=== PATIENT | female | born 1985 | race African-American/Black ===

== ENCOUNTER 2016-12-01 14:40 | Emergency (ER) | payer SELFPAY ==
[2016-12-01 15:07] VITALS: BP 128/66; PULSE 78; TEMP 98.4; BMI 30.7
[2016-12-01] MEDS ORDERED: ACETAMINOPHEN 325 MG TABLET (FP) PO ONE (18:07)
--- NOTE | 2016-12-01 18:07 | PDOC ---
History of Present Illness - General Chief Complaint: Nausea/Vomiting Stated Complaint: preg ABD PAIN/Nausea/Vomiting Time Seen by Provider: 12/01/16 17:36 History Source: Patient - History of Present Illness Timing/Duration: reports: constant Quality: reports: cramping Past History - Past Medical History Allergies/Adverse Reactions: Allergies Allergy/AdvReac Type Severity Reaction Status Date / Time No Known Allergies Allergy Verified 12/01/16 15:04 Home Medications: Ambulatory Orders Vit/Iron Fumarate/FA [ Tablet] 1 each PO DAILY 12/01/16 - Psycho/Social/Smoking Cessation Hx Suicidal Ideation: No Smoking History: Never smoked Review of Systems - Review of Systems Constitutional: No: Chills, Fever ABD/GI: Yes: Abdominal cramping. No: Nausea, Vomiting : No: Dysuria *Physical Exam - Vital Signs Last Vital Signs Temp Pulse Resp BP Pulse Ox 98.4 F 78 18 128/66 100 12/01/16 15:05 12/01/16 15:05 12/01/16 15:05 12/01/16 15:05 12/01/16 15:05 - Physical Exam General Appearance: Yes: Appropriately Dressed. No: Apparent Distress HEENT: positive: Normal Voice Neck: positive: Supple Respiratory/Chest: negative: Respiratory Distress Female Pelvic Exam: positive: normal external exam, normal adnexa, adnexal tenderness. negative: CMT, discharge, lesions, vaginal bleeding Gastrointestinal/Abdominal: positive: Soft. negative: Tender Extremity: positive: Normal Inspection Integumentary: positive: Dry, Warm Neurologic: positive: Fully Oriented, Alert, Normal Mood/Affect ED Treatment Course - RADIOLOGY Radiology Studies Ordered: Category Date Time Status TRANSVAGINAL US PREG [US] Stat Ultrasound 12/01/16 18:03 Ordered Medical Decision Making - Medical Decision Making 12/01/16 18:04 31 yo F, no sig hx, , states her last menstrual period was at some point during the second week of October, so not certain how far along she is, tested positive at home test several days ago and now presenting with suprapubic cramping and states she vomited twice this a.m. Denies vaginal bleed , dysuria, back pain, fever or chills See exam 1st trimester pain R/o ectopic vs uti vs abd pain in nl preg Stable w/ benign abd and closed os w/ no vag bleed -pain control -ua -beta -T&S -US 12/01/16 18:39 12/01/16 19:02 Pt signed out to [employer] Nohelia Schreiber pending w/u. Will need referral to OB upon discharge *DC/Admit/Observation/Transfer Diagnosis at time of Disposition: , location unknown - Discharge Dispostion Disposition: HOME Condition at time of disposition: Stable - Referrals Referrals: Claudy Rose MD [Staff Physician] - - Patient Instructions Printed Discharge Instructions: Ectopic , DI for Abdominal Pain -- Early Additional Instructions: You MUST return in 2 days for a repeat blood test to evaluate your . If you experience any worsening abdominal pain, severe vaginal bleeding, persistent vomiting, or any new or worsening symptoms, please return to the ER.
[2016-12-01] MEDS ORDERED: ACETAMINOPHEN 325 MG TABLET (FP) ONE (18:13)
[2016-12-01 18:54] LABS: URINE APPEARANCE CLOUDY; URINE BILIRUBIN NEGATIVE (NEGATIVE); URINE BLOOD NEGATIVE (NEGATIVE); URINE COLOR YELLOW; URINE GLUCOSE (UA) NEGATIVE (NEGATIVE); URINE KETONE NEGATIVE (NEGATIVE); URINE NITRITE NEGATIVE (NEGATIVE); URINE PROTEIN NEGATIVE (NEGATIVE); URINE UROBILINOGEN NEGATIVE mg/dL (0.2-1.0)
[2016-12-01 18:56] LABS: URINE LEUK ESTERASE 1+ (NEGATIVE)
--- NOTE | 2016-12-01 19:30 | PDOC ---
*Physical Exam - Vital Signs Last Vital Signs Temp Pulse Resp BP Pulse Ox 98.4 F 78 18 128/66 100 12/01/16 15:05 12/01/16 15:05 12/01/16 15:05 12/01/16 15:05 12/01/16 15:05 - Physical Exam Comments: 12/01/16 19:30 Sign-out received from outgoing ER provider Hayder. Pt interviewed and examined. Ancillary studies reviewed. Awaiting TVUS. 12/01/16 20:44 TVUS results: of unknown location. The thickened endometrium demonstrates a trilaminar appearance which may be noted in the setting of ectopic . 2 cm left ovarian cyst containing internal debris. The right ovary could not be definitely identified. Advised patient of ectopic precautions and that she MUST follow up in two days for repeat beta. Advised patient of signs and symptoms for return to ER; patient verbalized understanding and agrees to plan. ED Treatment Course - ADDITIONAL ORDERS Additional order review: Laboratory Results 12/01/16 18:00 Urine Color Yellow Urine Appearance Cloudy Urine pH 5.0 Urine Protein Negative Urine Glucose (UA) Negative Urine Ketones Negative Urine Blood Negative Urine Nitrite Negative Urine Bilirubin Negative Urine Urobilinogen Negative Ur Leukocyte Esterase 1+ H Urine HCG, Qual Positive - Medications Given in the ED: ED Medications Discontinued Medications Generic Name Dose Route Start Last Admin Trade Name Vashti PRN Reason Stop Dose Admin Acetaminophen 650 mg 12/01/16 18:07 12/01/16 18:36 Tylenol - PO 12/01/16 18:08 650 mg ONCE ONE Administration *DC/Admit/Observation/Transfer Diagnosis at time of Disposition: , location unknown - Discharge Dispostion Disposition: HOME Condition at time of disposition: Stable Admit: No - Referrals Referrals: Claudy Rose MD [Staff Physician] - - Patient Instructions Printed Discharge Instructions: Ectopic , DI for Abdominal Pain -- Early Additional Instructions: You MUST return in 2 days for a repeat blood test to evaluate your . If you experience any worsening abdominal pain, severe vaginal bleeding, persistent vomiting, or any new or worsening symptoms, please return to the ER.
--- NOTE | 2016-12-01 20:04 | PDOC ---
*Physical Exam - Vital Signs Last Vital Signs Temp Pulse Resp BP Pulse Ox 98.4 F 78 18 128/66 100 12/01/16 15:05 12/01/16 15:05 12/01/16 15:05 12/01/16 15:05 12/01/16 15:05 - Physical Exam Comments: 12/01/16 20:03 The patient was examined by [MACIEJ Singletary/LINA Schreiber] under my direct supervision. I personally evaluated the patient. I concur with the above findings and the plan of care. ED Treatment Course - ADDITIONAL ORDERS Additional order review: Laboratory Results 12/01/16 12/01/16 18:37 18:00 Beta HCG, Quant 419.9 Urine Color Yellow Urine Appearance Cloudy Urine pH 5.0 Urine Protein Negative Urine Glucose (UA) Negative Urine Ketones Negative Urine Blood Negative Urine Nitrite Negative Urine Bilirubin Negative Urine Urobilinogen Negative Ur Leukocyte Esterase 1+ H Urine HCG, Qual Positive - Medications Given in the ED: ED Medications Discontinued Medications Generic Name Dose Route Start Last Admin Trade Name Vashti PRN Reason Stop Dose Admin Acetaminophen 650 mg 12/01/16 18:07 12/01/16 18:36 Tylenol - PO 12/01/16 18:08 650 mg ONCE ONE Administration
[2016-12-01 22:57] LABS: URINE MUCUS MANY; URINE RBC 4 /hpf (0-3); URINE WBC 5 /hpf (3-5)
== END 2016-12-01 21:00 | disposition home or self-care (01) ==
LOC: JER 14:40
DX: O26.91 Pregnancy related conditions, unspecified, first trimester (principal); Z3A.00 Weeks of gestation of pregnancy not specified
CPT/HCPCS: 36415; 76817-TC; 81003; 81015; 84702; 84703; 86850; 86900; 86901; 99282-25

== ENCOUNTER 2016-12-03 06:27 | Emergency (ER) | payer SELFPAY ==
[2016-12-03 06:41] VITALS: BP 131/70; PULSE 88; TEMP 97.6; BMI 30.7
--- NOTE | 2016-12-03 07:02 | PDOC ---
History of Present Illness - General Chief Complaint: Revisit, Lab Variance Stated Complaint: REVISIT Time Seen by Provider: 12/03/16 07:02 History Source: Patient Exam Limitations: No Limitations - History of Present Illness Initial Comments: 12/03/16 07:02 CHIEF COMPLAINT: Followup HISTORY OF PRESENT ILLNESS: This is an otherwise healthy a1 (miscarriage at 6 months gestation), LMP sometime in October, seen on 12/01 with pelvic pain. Bhcg was 420. Transvaginal u/s showed a thickened endometrium with a trilaminar appearance which may be noted in the setting of ectopic , no IUP, 2 cm left ovarian cyst containing internal debris, right ovary not definitely identified. She is no longer having pain, but returns for repeat labs. V/s on arrival are unremarkable. REVIEW OF SYSTEMS: GENERAL/CONSTITUTIONAL: No fever or chills. No weakness. No weight change. CARDIOVASCULAR: No chest pain or palpitations. RESPIRATORY: No cough, wheezing, or shortness of breath. GASTROINTESTINAL: No nausea, vomiting, diarrhea or constipation. GENITOURINARY: No pelvic pain or vaginal bleeding. NEUROLOGIC: No headache, vertigo, loss of consciousness, or loss of sensation. HEMATOLOGIC/LYMPHATIC: No anemia, easy bleeding, or history of blood clots. ALLERGIC/IMMUNOLOGIC: No hives or skin allergy. No latex allergy. PHYSICAL EXAM: GENERAL: The patient is awake, alert, and fully oriented, in no acute distress. ENT: Pupils equal, round and reactive to light, extraocular movements intact, sclera anicteric, conjunctiva clear. Neck supple. LUNGS: Clear to auscultation bilaterally. Normal excursion. No respiratory distress or use of accessory muscles. CV: RRR, S1/S2, no MRG. Cap refill < 2 sec. ABDOMEN: Soft, non-distended, non-tender. EXTREMITIES: Normal range of motion, no edema. NEUROLOGICAL: Normal speech, normal gait. CN II-XII grossly intact. PSYCH: Normal mood, normal affect. SKIN: Warm, dry, normal turgor, no rashes or lesions noted. Past History - Past Medical History Allergies/Adverse Reactions: Allergies Allergy/AdvReac Type Severity Reaction Status Date / Time No Known Allergies Allergy Verified 12/03/16 06:38 Home Medications: Ambulatory Orders Vit/Iron Fumarate/FA [ Tablet] 1 each PO DAILY 12/01/16 Cephalexin [Keflex] 500 mg PO BID #10 capsule 12/03/16 - Psycho/Social/Smoking Cessation Hx Suicidal Ideation: No Smoking History: Never smoked Have you smoked in the past 12 months: No Information on smoking cessation initiated: No Hx Alcohol Use: No Drug/Substance Use Hx: No *Physical Exam - Vital Signs Last Vital Signs Temp Pulse Resp BP Pulse Ox 97.6 F 88 20 131/70 100 12/03/16 06:39 12/03/16 06:39 12/03/16 06:39 12/03/16 06:39 12/03/16 06:39 Medical Decision Making - Medical Decision Making 12/03/16 07:23 A/P: 31 year old female with early first trimester without confirmed IUP. 1. Repeat UA, send urine culture (1+ leukesterase on prior visit) 2. Bhcg 3. TV u/s 12/03/16 09:08 Bhcg 907 (up from 419 on 12/01) 12/03/16 09:32 U/s shows small intrauterine gestational sac like structure compatible with gestatonal age 4 weeks 5 days. Will recommend repeat u/s and bhcg in one week. Ob followup information provided. Return precautions reviewed. UA with 6 WBCs- culture sent, will treat for UTI with Keflex. *DC/Admit/Observation/Transfer Diagnosis at time of Disposition: Intrauterine Urinary tract infection Qualifiers: Urinary tract infection type: acute cystitis Hematuria presence: without hematuria Qualified Code(s): N30.00 - Acute cystitis without hematuria - Discharge Dispostion Disposition: HOME Condition at time of disposition: Stable Admit: No - Prescriptions Prescriptions: Cephalexin [Keflex] 500 mg PO BID #10 capsule - Patient Instructions Printed Discharge Instructions: DI for -- Discomforts and Remedies, DI for Urinary Tract Infection (UTI) Additional Instructions: -Continue your vitamins. -Add Keflex (an antibiotic) as prescribed for UTI. -Follow up with your equipment cleaner in one week for repeat ultrasound and blood work (referral enclosed in case you do not have an OB) -Return here for pelvic pain, vaginal bleeding (especially if you have more than one pad per hour), or any other concerning symptoms
[2016-12-03 08:37] LABS: URINE APPEARANCE SLCLOUDY; URINE BILIRUBIN NEGATIVE (NEGATIVE); URINE BLOOD NEGATIVE (NEGATIVE); URINE COLOR YELLOW; URINE GLUCOSE (UA) NEGATIVE (NEGATIVE); URINE KETONE NEGATIVE (NEGATIVE); URINE LEUK ESTERASE TRACE (NEGATIVE); URINE NITRITE NEGATIVE (NEGATIVE); URINE PROTEIN NEGATIVE (NEGATIVE); URINE UROBILINOGEN NEGATIVE mg/dL (0.2-1.0)
[2016-12-03 09:06] LABS: URINE MUCUS FEW; URINE RBC 1 /hpf (0-3); URINE WBC 6 /hpf (3-5)
[2016-12-03] MEDS ORDERED: CEPHALEXIN MONOHYDRATE 500 MG CAPSULE (UD) PO ONE (09:31)
[2016-12-03] MEDS ORDERED: CEPHALEXIN MONOHYDRATE 250 MG CAPSULE (FP) ONE (09:38)
== END 2016-12-03 09:45 ==
LOC: JER 06:27
CPT/HCPCS: 36415; 76801-TC; 76817-TC; 81003; 81015; 84702; 87086; 87186; 99283-25